=== PATIENT | male | born 1980 | race American Indian/Alaskan Native ===

== ENCOUNTER 2017-08-01 05:39 | Emergency (ER) | payer SELFPAY ==
[2017-08-01 06:16] VITALS: BP 169/113
[2017-08-01] MEDS ORDERED: MOTRIN PO ONE (08:59)
--- NOTE | 2017-08-01 09:03 | Emergency Department Report ---
ED ENT HPI - General Chief complaint: Dental/Oral Stated complaint: TOOTHACHE Time Seen by Provider: 08/01/17 08:54 Source: patient Mode of arrival: Ambulatory Limitations: No Limitations - History of Present Illness Initial comments: This is a 36-year-old male nontoxic, well nourished in appearance, no acute signs of distress presents to the ED with c/o of toothache chronic intermittent toothache. Patient states 4 days ago he developed toothache again and describes it as aching with level of 8 out of 10. Patient denies any facial swelling, drooling, hoarseness, fever, chills, nausea, vomiting, chest pain or shortness of breath. Patient denies follow-up with a dentist. Patient states allergies to amoxicillin. Past medical history is hypertension. MD complaint: tooth pain -: year(s) Location: tooth # (19) 1 - toothache Severity: mild Severity scale (0 -10): 8 Quality: aching Consistency: constant Improves with: none Worsens with: none Context- Dental: history of dental caries, poor dental care Associated Symptoms: gum swelling, toothache. denies: fever, cough, pain with swallowing, sore throat, tinnitus, hearing loss, discharge from ear, rhinorrhea - Related Data Previous Rx's Medication Instructions Recorded Last Taken Type Clindamycin [Clindamycin CAP] 300 mg PO Q8H 7 Days cap 08/01/17 Unknown Rx Ibuprofen [Motrin] 600 mg PO Q8H PRN #30 tablet 08/01/17 Unknown Rx Allergies Allergy/AdvReac Type Severity Reaction Status Date / Time amoxicillin Allergy Hives Verified 08/01/17 06:12 ED Dental HPI - General Chief complaint: Dental/Oral Stated complaint: TOOTHACHE Time Seen by Provider: 08/01/17 08:54 Source: patient Mode of arrival: Ambulatory Limitations: No Limitations - Related Data Previous Rx's Medication Instructions Recorded Last Taken Type Clindamycin [Clindamycin CAP] 300 mg PO Q8H 7 Days cap 08/01/17 Unknown Rx Ibuprofen [Motrin] 600 mg PO Q8H PRN #30 tablet 08/01/17 Unknown Rx Allergies Allergy/AdvReac Type Severity Reaction Status Date / Time amoxicillin Allergy Hives Verified 08/01/17 06:12 ED Review of Systems ROS: Stated complaint: TOOTHACHE Other details as noted in HPI Constitutional: denies: chills, fever Eyes: denies: eye pain, eye discharge, vision change ENT: dental pain (19). denies: ear pain, throat pain Respiratory: denies: cough, shortness of breath, wheezing Cardiovascular: denies: chest pain, palpitations Endocrine: no symptoms reported Gastrointestinal: denies: abdominal pain, nausea, diarrhea Genitourinary: denies: urgency, dysuria Musculoskeletal: denies: back pain, joint swelling, arthralgia Skin: denies: rash, lesions Neurological: denies: headache, weakness, paresthesias Psychiatric: denies: anxiety, depression Hematological/Lymphatic: denies: easy bleeding, easy bruising ED Past Medical Hx - Past Medical History Previous Medical History?: Yes Hx Hypertension: Yes - Surgical History Past Surgical History?: No - Social History Smoking Status: Current Every Day Smoker Substance Use Type: Marijuana - Medications Home Medications: Home Medications Medication Instructions Recorded Confirmed Last Taken Type Clindamycin [Clindamycin CAP] 300 mg PO Q8H 7 Days cap 08/01/17 Unknown Rx Ibuprofen [Motrin] 600 mg PO Q8H PRN #30 tablet 08/01/17 Unknown Rx ED Physical Exam - General Limitations: No Limitations General appearance: alert, in no apparent distress - Head Head exam: Present: atraumatic, normocephalic - Eye Eye exam: Present: normal appearance - ENT ENT exam: Present: mucous membranes moist, TM's normal bilaterally, normal external ear exam - Expanded ENT Exam Expanded Ear exam: Present: normal external inspection Mouth exam: Present: normal external inspection, tongue normal. Absent: drooling, trismus, muffled voice, tongue elevation, laceration Teeth exam: Present: dental caries, fractured tooth # (19), dental tenderness # (19), gingival enlargement, other (No facial swelling or abscess) Throat exam: Positive: normal inspection, other (Uvula midline. ). Negative: tonsillar erythema, tonsillomegaly, tonsillar exudate, R peritonsillar mass, L peritonsillar mass - Neck Neck exam: Present: normal inspection, full ROM. Absent: tenderness, meningismus, lymphadenopathy, thyromegaly - Respiratory Respiratory exam: Present: normal lung sounds bilaterally. Absent: respiratory distress - Cardiovascular Cardiovascular Exam: Present: regular rate, normal rhythm. Absent: systolic murmur, diastolic murmur, rubs, gallop - GI/Abdominal GI/Abdominal exam: Present: soft, normal bowel sounds - Rectal Rectal exam: Present: deferred - Extremities Exam Extremities exam: Present: normal inspection - Back Exam Back exam: Present: normal inspection - Neurological Exam Neurological exam: Present: alert, oriented X3 - Psychiatric Psychiatric exam: Present: normal affect, normal mood - Skin Skin exam: Present: warm, dry, intact, normal color. Absent: rash ED Course Vital Signs 08/01/17 06:12 Temperature 97.8 F Pulse Rate 65 Blood Pressure 169/113 O2 Sat by Pulse 99 Oximetry - Reevaluation(s) Reevaluation #1: 08/01/17 09:02 Patient is speaking in full sentences with no signs of distress noted. ED Medical Decision Making - Medical Decision Making 36-year-old male that presents with gingivitis and dental caries. Patient is stable and was examined by me. I'll treat patient with clindamycin and Motrin for pain. Patient also received Peridex at discharge. Patient was instructed to follow with a dentist. At time of discharge, the patient does not seem toxic or ill in appearance. No acute signs of distress noted. Patient agrees to discharge treatment plan of care. No further questions noted by the patient. Critical care attestation.: If time is entered above; I have spent that time in minutes in the direct care of this critically ill patient, excluding procedure time. ED Disposition Clinical Impression: Dental caries, Gingivitis Disposition: DC-01 TO HOME OR SELFCARE Is pt being admited?: No Does the pt Need Aspirin: No Condition: Stable Instructions: Dental Caries (ED), Gingivitis (ED), Ibuprofen (By mouth), Clindamycin (By mouth) Additional Instructions: Follow-up with a dentist in 3-5 days or if symptoms worsen and continue return to emergency room as soon as possible. Prescriptions: Clindamycin [Clindamycin CAP] 300 mg PO Q8H 7 Days cap Ibuprofen [Motrin] 600 mg PO Q8H PRN #30 tablet PRN Reason: Pain Referrals: PRIMARY CARE, [Referring] - 3-5 Days [facility] [Outside] - 3-5 Days KRISTAL GEE MD [Staff Physician] - 3-5 Days Forms: Work/School Release Form(ED)
== END 2017-08-01 09:31 | disposition home or self-care (01) ==
LOC: ED 05:39
DX: K02.9 Dental caries, unspecified (principal); K05.10 Chronic gingivitis, plaque induced
CPT/HCPCS: 99282

== ENCOUNTER 2019-07-31 15:29 | Emergency (ER) | payer SELFPAY ==
--- NOTE | 2019-07-31 18:23 | Emergency Department Report ---
Blank Doc - Documentation Documentation: 38-year-old male that presents with headache and uncontrolled HTN. This initial assessment/diagnostic orders/clinical plan/treatment(s) is/are subject to change based on patient's health status, clinical progression and re- assessment by fellow clinical providers in the ED. Further treatment and workup at subsequent clinical providers discretion. Patient/guardians urged not to elope from the ED as their condition may be serious if not clinically assessed and managed. Initial orders include: 1- Patient sent to [facility] for further evaluation and treatment 2- CT head
--- NOTE | 2019-07-31 18:58 | Cat Scan Report ---
CT BRAIN: 07/31/2019 INDICATION / CLINICAL INFORMATION: headadche. COMPARISON: None available. FINDINGS: BRAIN/INTRACRANIAL STRUCTURES: Unenhanced CT images of the brain demonstrate no evidence of acute int racranial abnormality. Ventricles and sulci are normal in size and shape. There is no evidence of ischemic injury, hemorrhage, or mass. There are no abnormal extra-axial fluid collections A single opacified and slightly expanded left ethmoid air cell is present. Paranasal sinuses are othe rwise clear. EXTRACRANIAL STRUCTURES: Unremarkable. IMPRESSION: No acute abnormality. All CT scans at this location are performed using dose reduction to ALARA by means of automated expos ure control. Signer Name: Arnol Clark MD Signed: 07/31/2019 6:53 PM Workstation Name: [id number]
[2019-07-31] MEDS ORDERED: diphenhydrAMINE 25 MG CAP PO ONE (22:16)
[2019-07-31] MEDS ORDERED: dexAMETHasone 20 MG/5 ML VIAL IM ONE (22:16)
[2019-07-31] MEDS ORDERED: ACETAMINOPHEN 500 MG TAB PO ONE (22:16)
[2019-07-31] MEDS ORDERED: METOCLOPRAMIDE 10 MG TAB PO ONE (22:17)
--- NOTE | 2019-07-31 22:23 | Emergency Department Report ---
ED Headache HPI - General Chief Complaint: Headache Stated Complaint: BLOOD PRESSURE Time Seen by Provider: 07/31/19 18:20 - History of Present Illness Initial Comments: Mr Gallego is a 38-year-old male with a history of hypertension who presents for sinus pain and pressure and frontal headache x3 days., he rates headache at 6/10 pressure and sharp radiating to follow. There is mild dizziness, nausea , no lightheadedness, no syncope. he endorse clear yellow rhinnorrhea and post nasal drip. States fever yesterday. pt states has not take htn medication in over 1 year. Symptoms are exacerbated by activity, symptoms r elieved by nothing. pt remains a/ox 3 , ambulatory with steady gait. Timing/Duration: other (3 days ) Quality: moderate Head Injury Location: frontal Recent Head Trauma: no recent headache/trauma Modifying Factors: improves with: movement Associated Symptoms: facial pain, fever/chills, nausea/vomiting, sinus infection Allergies/Adverse Reactions: Allergies amoxicillin Allergy (Verified 08/01/17 06:12) Hives Home Medications: Ambulatory Orders Clindamycin [Clindamycin CAP] 300 mg PO Q8H 7 Days cap 08/01/17 Ibuprofen [Motrin] 600 mg PO Q8H PRN #30 tablet 08/01/17 Acetaminophen [Acetaminophen TAB] 1,000 mg PO Q6HR PRN #30 tablet 07/31/19 Clindamycin [Clindamycin CAP] 300 mg PO Q8H 10 Days #30 capsule 07/31/19 amLODIPine 10 mg PO DAILY #30 tab 07/31/19 diphenhydrAMINE [Benadryl CAP] 25 mg PO Q6HR PRN #30 capsule 07/31/19 ED Review of Systems ROS: Stated complaint: BLOOD PRESSURE Other details as noted in HPI Constitutional: chills, fever, malaise Eyes: denies: eye pain, eye discharge, vision change ENT: ear pain, throat pain, congestion Respiratory: cough. denies: shortness of breath, wheezing Cardiovascular: denies: chest pain, palpitations Endocrine: no symptoms reported Gastrointestinal: nausea, vomiting. denies: abdominal pain Genitourinary: denies: urgency, dysuria Musculoskeletal: denies: back pain, joint swelling, arthralgia Skin: as per HPI Neurological: headache, paresthesias, vertigo. denies: numbness, confusion, abnormal gait Psychiatric: as per HPI Hematological/Lymphatic: as per HPI ED Past Medical Hx - Past Medical History Previous Medical History?: Yes Hx Hypertension: Yes Hx Psychiatric Treatment: Yes (developmental delays) - Surgical History Past Surgical History?: No - Social History Smoking Status: Never Smoker Substance Use Type: None - Medications Home Medications: Home Medications Medication Instructions Recorded Confirmed Last Taken Type Clindamycin [Clindamycin CAP] 300 mg PO Q8H 7 Days cap 08/01/17 Unknown Rx Ibuprofen [Motrin] 600 mg PO Q8H PRN #30 tablet 08/01/17 Unknown Rx Acetaminophen [Acetaminophen TAB] 1,000 mg PO Q6HR PRN #30 tablet 07/31/19 Unknown Rx Clindamycin [Clindamycin CAP] 300 mg PO Q8H 10 Days #30 capsule 07/31/19 Unknown Rx amLODIPine 10 mg PO DAILY #30 tab 07/31/19 Unknown Rx diphenhydrAMINE [Benadryl CAP] 25 mg PO Q6HR PRN #30 capsule 07/31/19 Unknown Rx ED Physical Exam - General Limitations: No Limitations General appearance: alert, in no apparent distress - Head Head exam: Present: atraumatic, normocephalic - Eye Eye exam: Present: normal appearance, PERRL, EOMI. Absent: conjunctival injection, nystagmus Pupils: Present: normal accommodation - ENT ENT exam: Present: mucous membranes moist - Expanded ENT Exam Expanded Ear exam: Present: normal external inspection, other (bilat maxillary sinus pain and pressure to palpation no erythema no swelling ) TM/Canal exam: Erythema: Right TM, Left TM Mouth exam: Absent: trismus Throat exam: Positive: tonsillar erythema. Negative: tonsillomegaly, tonsillar exudate, R peritonsillar mass, L peritonsillar mass - Neck Neck exam: Present: normal inspection, full ROM, lymphadenopathy. Absent: tenderness - Expanded Neck Exam Expanded Neck exam: Absent: tenderness, midline deformity, anterior neck swelling, thyroid mass, carotid bruit, tracheal deviation - Respiratory Respiratory exam: Present: normal lung sounds bilaterally. Absent: respiratory distress, wheezes, stridor, chest wall tenderness - Cardiovascular Cardiovascular Exam: Present: regular rate, normal rhythm, normal heart sounds. Absent: systolic murmur, diastolic murmur, rubs, gallop - GI/Abdominal GI/Abdominal exam: Present: soft, normal bowel sounds. Absent: distended, tenderness, guarding, rebound, rigid, bruit, hernia - Rectal Rectal exam: Present: deferred - Extremities Exam Extremities exam: Present: normal inspection, full ROM. Absent: tenderness - Back Exam Back exam: Present: normal inspection, full ROM. Absent: tenderness, CVA tenderness (R), CVA tenderness (L), vertebral tenderness - Neurological Exam Neurological exam: Present: alert, oriented X3, CN II-XII intact, normal gait, reflexes normal. Absent: motor sensory deficit - Expanded Neurological Exam Expanded Patient oriented to: Present: person, place, time Speech: Present: fluid speech Motor strength exam: RUE: 5, LUE: 5, RLE: 5, LLE: 5 Best Eye Response ([place]are[place]): (4) open spontaneously Best Motor Response ([place]): (6) obeys commands Best Verbal Response ([place]): (5) oriented [place] Total: 15 - Psychiatric Psychiatric exam: Present: normal affect, normal mood - Skin Skin exam: Present: warm, dry, intact, normal color. Absent: rash ED Course Vital Signs 07/31/19 07/31/19 07/31/19 18:21 22:14 22:33 Temperature 98.2 F Pulse Rate 89 70 Respiratory 18 15 17 Rate Blood Pressure 173/119 Blood Pressure 185/123 [Left] O2 Sat by Pulse 100 100 Oximetry ED Medical Decision Making - Radiology Data Radiology results: report reviewed, [place] [address] Cat Scan Report Signed Patient: JAILYN GALLEGO MR#: [id number] : 1980 Acct:[id number] Age/Sex: 38 / M ADM Date: 07/31/19 Loc: ED Attending Dr: Ordering Physician: CROW MIRANDA NP Date of Service: 07/31/19 Procedure(s): CT head/brain wo con Accession Number(s): [id number] cc: CROW MIRANDA NP CT BRAIN: 07/31/2019 INDICATION / CLINICAL INFORMATION: headadche. COMPARISON: None available. FINDINGS: BRAIN/INTRACRANIAL STRUCTURES: Unenhanced CT images of the brain demonstrate no evidence of acute intracranial abnormality. Ventricles and sulci are normal in size and shape. There is no evidence of ischemic injury, hemorrhage, or mass. There are no abnormal extra-axial fluid collections A single opacified and slightly expanded left ethmoid air cell is present. Paranasal sinuses are otherwise clear. EXTRACRANIAL STRUCTURES: Unremarkable. IMPRESSION: No acute abnormality. All CT scans at this location are performed using dose reduction to ALARA by means of automated exposure control. Signer Name: Arnol Clark MD Signed: 07/31/2019 6:53 PM Workstation Name: [id number] anscribed By: NANCY Dictated By: Arnol Clark MD Electronically Authenticated By: Arnol Clark MD Signed Date/Time: 07/31/191852 DD/ 51 TD/TT: - Medical Decision Making CT scan left ethmoid opacification, plan treat for sinusitis, sinus headache. Patient has the symptoms are improved we will refill hypertension medication for 1 week patient will follow-up with PCP in 2 to 3 days for BP management and follow-up. Patient verbalizes agreement and understanding with discharge plan. patient will be DC'd home in stable condition at this time. patient is currently alert ,oriented x3, ambulatory with steady gait. Critical care attestation.: If time is entered above; I have spent that time in minutes in the direct care of this critically ill patient, excluding procedure time. ED Disposition Clinical Impression: Sinus headache Sinusitis Qualifiers: Sinusitis location: ethmoidal Chronicity: acute Recurrence: recurrent Qualified Code(s): J01.21 - Acute recurrent ethmoidal sinusitis HTN (hypertension) Qualifiers: Hypertension type: essential hypertension Qualified Code(s): I10 - Essential (primary) hypertension Disposition: DC-01 TO HOME OR SELFCARE Is pt being admited?: No Does the pt Need Aspirin: No Condition: Stable Instructions: Hypertension (ED), Acute Bacterial Rhinosinusitis (ED) Prescriptions: Acetaminophen [Acetaminophen TAB] 1,000 mg PO Q6HR PRN #30 tablet PRN Reason: pain headache amLODIPine 10 mg PO DAILY #30 tab diphenhydrAMINE [Benadryl CAP] 25 mg PO Q6HR PRN #30 capsule PRN Reason: headache / sinus congestion Clindamycin [Clindamycin CAP] 300 mg PO Q8H 10 Days #30 capsule Referrals: [facility] [Outside] - 3-5 Days Forms: Work/School Release Form(ED) Time of Disposition: 22:58
[2019-07-31 22:34] VITALS: BP 185/123
[2019-07-31] MEDS ORDERED: cloNIDine 0.1 MG TAB PO ONE (22:50)
== END 2019-07-31 23:07 | disposition home or self-care (01) ==
LOC: ED 15:29
DX: I10 Essential (primary) hypertension (principal); J01.21 Acute recurrent ethmoidal sinusitis; Z79.899 Other long term (current) drug therapy; Z88.1 Allergy status to other antibiotic agents
CPT/HCPCS: 70450; 96372; 99283; J1100

== ENCOUNTER 2021-04-04 02:14 | Emergency (ER) | payer SELFPAY ==
[2021-04-04 02:22] VITALS: BP 149/78
[2021-04-04] MEDS ORDERED: traMADol 50 MG TAB PO ONE (03:13)
--- NOTE | 2021-04-04 03:47 | XRay Report ---
RIGHT ANKLE 3 VIEW(S) INDICATION / CLINICAL INFORMATION: ankle pain swelling COMPARISON: None available. FINDINGS: BONES / JOINT(S): Osteochondral defect medial talar dome. 4 mm intra-articular body anterior tibiotal ar joint on lateral view. Old healed supra syndesmotic distal fibula fracture with bridging heterotop ic ossification within the syndesmosis. Widened medial ankle clear space measuring 7 mm. SOFT TISSUES: No significant abnormality. ADDITIONAL FINDINGS: None. Signer Name: Kaiden Nowak MD Signed: 04/04/2021 3:43 AM Workstation Name: [email or web address]
--- NOTE | 2021-04-04 04:33 | Emergency Department Report ---
ED Lower Extremity HPI - General Chief Complaint: Extremity Injury, Lower Stated Complaint: RT LEG/ANKLE PAIN Time Seen by Provider: 04/04/21 03:15 Source: patient Mode of arrival: Ambulatory Limitations: No Limitations - History of Present Illness Injury: Ankle: Right (medial ankel swelling ) Type of Injury: hyperflexion Place: home Severity: moderate Severity scale (0 -10): 5 Improves With: nothing Worsens With: weight bearing, movement, palpation Context: walking - Related Data Previous Rx's Medication Instructions Recorded Last Taken Type Clindamycin [Clindamycin CAP] 300 mg PO Q8H 7 Days cap 08/01/17 Unknown Rx Ibuprofen [Motrin] 600 mg PO Q8H PRN #30 tablet 08/01/17 Unknown Rx Acetaminophen [Acetaminophen TAB] 1,000 mg PO Q6HR PRN #30 tablet 07/31/19 Unknown Rx Clindamycin [Clindamycin CAP] 300 mg PO Q8H 10 Days #30 capsule 07/31/19 Unknown Rx amLODIPine 10 mg PO DAILY #30 tab 07/31/19 Unknown Rx diphenhydrAMINE [Benadryl CAP] 25 mg PO Q6HR PRN #30 capsule 07/31/19 Unknown Rx Ibuprofen [Motrin 800 MG tab] 800 mg PO Q8HR PRN #30 tablet 04/04/21 Unknown Rx Allergies Allergy/AdvReac Type Severity Reaction Status Date / Time amoxicillin Allergy Hives Verified 08/01/17 06:12 ED Review of Systems ROS: Stated complaint: RT LEG/ANKLE PAIN Other details as noted in HPI ED Past Medical Hx - Past Medical History Previous Medical History?: Yes Hx Hypertension: Yes Hx Psychiatric Treatment: Yes (developmental delays) - Surgical History Past Surgical History?: No - Social History Smoking Status: Never Smoker Substance Use Type: None - Medications Home Medications: Home Medications Medication Instructions Recorded Confirmed Last Taken Type Clindamycin [Clindamycin CAP] 300 mg PO Q8H 7 Days cap 08/01/17 Unknown Rx Ibuprofen [Motrin] 600 mg PO Q8H PRN #30 tablet 08/01/17 Unknown Rx Acetaminophen [Acetaminophen TAB] 1,000 mg PO Q6HR PRN #30 tablet 07/31/19 Unknown Rx Clindamycin [Clindamycin CAP] 300 mg PO Q8H 10 Days #30 capsule 07/31/19 Unknown Rx amLODIPine 10 mg PO DAILY #30 tab 07/31/19 Unknown Rx diphenhydrAMINE [Benadryl CAP] 25 mg PO Q6HR PRN #30 capsule 07/31/19 Unknown Rx Ibuprofen [Motrin 800 MG tab] 800 mg PO Q8HR PRN #30 tablet 04/04/21 Unknown Rx ED Physical Exam - General Limitations: No Limitations General appearance: alert - Head Head exam: Present: atraumatic, normocephalic - Eye Eye exam: Present: normal appearance - ENT ENT exam: Present: normal exam - Neck Neck exam: Present: normal inspection, full ROM - Respiratory Respiratory exam: Present: normal lung sounds bilaterally. Absent: respiratory distress - Cardiovascular Cardiovascular Exam: Present: regular rate, normal rhythm, normal heart sounds. Absent: systolic murmur, diastolic murmur, rubs, gallop - GI/Abdominal GI/Abdominal exam: Present: soft, normal bowel sounds - Rectal Rectal exam: Present: deferred - Extremities Exam Extremities exam: Present: full ROM, normal capillary refill, joint swelling - Expanded Lower Extremity Exam Right Ankle exam: Present: full ROM, tenderness (right medial ), swelling, deformity. Absent: abrasion, laceration, ecchymosis, crepidus, dislocation, erythema, anterior draw sign Foot/Toe exam: Present: full ROM. Absent: tenderness Neuro vascular tendon exam: Absent: pulse deficit, motor deficit, sensory deficit, tendon deficit Gait: Positive: observed and limited by pain - Back Exam Back exam: Present: normal inspection, full ROM. Absent: tenderness - Neurological Exam Neurological exam: Present: alert, oriented X3, CN II-XII intact, reflexes normal. Absent: motor sensory deficit - Expanded Neurological Exam Expanded Patient oriented to: Present: person, place, time Speech: Present: fluid speech Motor strength exam: RUE: 5, LUE: 5, RLE: 5, LLE: 5 DTR: ankle (R): 1+, ankle (L): 1+ Best Eye Response ([place]): (4) open spontaneously Best Motor Response ([place]): (6) obeys commands Best Verbal Response ([place]): (5) oriented [place] Total: 15 - Psychiatric Psychiatric exam: Present: normal affect, normal mood - Skin Skin exam: Present: warm, dry, intact, normal color. Absent: rash ED Course Vital Signs 04/04/21 02:21 Temperature 97.5 F L Pulse Rate 105 H Respiratory 18 Rate Blood Pressure 149/78 O2 Sat by Pulse 100 Oximetry ED Lower Extremity MDM - Radiology Data Radiology results: report reviewed, image reviewed RIGHT ANKLE 3 VIEW(S) INDICATION / CLINICAL INFORMATION: ankle pain swelling COMPARISON: None available. FINDINGS: BONES / JOINT(S): Osteochondral defect medial talar dome. 4 mm intra-articular body anterior tibiotalar joint on lateral view. Old healed supra syndesmotic distal fibula fracture with bridging heterotopic ossification within the syndesmosis. Widened medial ankle clear space measuring 7 mm. SOFT TISSUES: No significant abnormality. ADDITIONAL FINDINGS: None. Signer Name: Kaiden Nowak MD Signed: 04/04/2021 3:43 AM Workstation Name: [email or web address] - Medical Decision Making No acute fracture there is a old healed Tylenol fracture with mild deformity plan NSAIDs as needed pain, follow-up with orthopedics, follow-up with primary care doctor in 2 to 3 days. Return to emergency should symptoms worsen, patient verbalized agreement and understanding with discharge plan. Patient DC'd home in stable condition at this time. Critical care attestation.: If time is entered above; I have spent that time in minutes in the direct care of this critically ill patient, excluding procedure time. ED Disposition Clinical Impression: Ankle arthralgia Qualifiers: Laterality: right Qualified Code(s): M25.571 - Pain in right ankle and joints of right foot Disposition: HOME / SELF CARE / HOMELESS Is pt being admited?: No Does the pt Need Aspirin: No Condition: Stable Instructions: How to Use Cold Therapy, [id number], Ankle Pain Additional Instructions: Take [id number] ibuprofen as needed for pain. Use Shekhar wrap as needed. Follow-up with your doctor in 2 to 3 days. Prescriptions: Ibuprofen [Motrin 800 MG tab] 800 mg PO Q8HR PRN #30 tablet PRN Reason: Pain Referrals: [facility] [Provider Group] - 3-5 Days SHELL FERNANDES MD [Staff Physician] - 3-5 Days Forms: Work/School Release Form(ED) Time of Disposition: 04:50
== END 2021-04-04 05:00 | disposition home or self-care (01) ==
LOC: ED 02:14
DX: M25.571 Pain in right ankle and joints of right foot (principal); I10 Essential (primary) hypertension
CPT/HCPCS: 99283

== ENCOUNTER 2021-10-29 00:40 | Emergency (ER) | payer SELFPAY ==
[2021-10-29 00:57] VITALS: BP 180/116
[2021-10-29] MEDS ORDERED: KETOROLAC 60 MG/2 ML INJ IM ONE (01:56)
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
[2021-10-29] MEDS ORDERED: TETANUS,DIPHTHERIA TOXOID ADULT 0.5 ML INJ IM ONE (02:03)
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
[2021-10-29] MEDS ORDERED: SODIUM CHLORIDE IRRI 500 ML 500 ML IR ONE (04:37)
[2021-10-29] MEDS ORDERED: SODIUM CHLORIDE 0.9% IRR 500 ML BOTTLE IR ONE (04:44)
== END 2021-10-29 05:47 | disposition home or self-care (01) ==
LOC: ED 00:40
DX: S61.432A Puncture wound without foreign body of left hand, initial encounter (principal); I10 Essential (primary) hypertension; W34.09XA Accidental discharge from other specified firearms, initial encounter; Y93.89 Activity, other specified; Y92.89 Other specified places as the place of occurrence of the external cause; Y99.8 Other external cause status
CPT/HCPCS: 73120; 90471; 90714; 96372; 99283; J1885